=== PATIENT | male | born 1955 | race Hispanic/Latino ===

== ENCOUNTER 2019-12-04 13:09 | Emergency (ER) | payer OTHER ==
--- OUTSIDE RECORDS SUMMARY | 2019-12-04 13:12 | XMS REPORT ---
:1955 Author Organization eClinicalWorks Care Team Providers Name Role Phone Tremaine Asher Provider Role Unavailable Allergies, Adverse Reactions, Alerts Substance Reaction Event Type N.K.D.A. Info Not Available Non Drug Allergy Problems Problem Type Condition Code Onset Dates Condition Status Assessment Body mass index (BMI) 30.0-30.9, Z68.30 Active adult Assessment Other obesity due to excess calories E66.09 Active Problem Hyperlipidemia, unspecified E78.5 Active hyperlipidemia type Assessment Elevated ALT measurement R74.0 Active Problem Allergic rhinitis, seasonal J30.2 Active Assessment Thrombocytopenia D69.6 Active Problem Hyperlipidemia, mixed E78.2 Active Problem Overweight E66.3 Active Problem Erectile dysfunction N52.9 Active Problem Body mass index (BMI) 30.0-30.9, Z68.30 Active adult Problem Asymptomatic hypertensive urgency I16.0 Active Assessment Decreased hearing of left ear H91.92 Active Assessment Allergic rhinitis, seasonal J30.2 Active Problem Other obesity due to excess calories E66.09 Active Assessment Vertigo R42 Active Problem Benign essential HTN I10 Active Problem Decreased hearing of left ear H91.92 Active Problem Anemia, unspecified type D64.9 Active Problem Thrombocytopenia D69.6 Active Assessment Hyperlipidemia, unspecified E78.5 Active hyperlipidemia type Assessment Medicare annual wellness visit, Z00.00 Active subsequent Assessment Anemia, unspecified type D64.9 Active Assessment Prediabetes R73.03 Active Problem Prediabetes R73.03 Active Problem Hypertension, unspecified type I10 Active Assessment Hypertension, unspecified type I10 Active Medications Medication Code Code Instructions Start End Status Dosage System Date Date Flonase [facility] 57046626150 50 MCG/ACT Active 1 spray in Nasally Once a each day nostril Lisinopril/HCTZ [facility] 91892593186 20.5 PO Q March Active one tablet daily 2019 Montelukast [facility] 76186013864 10 MG Orally Active 1 tablet Sodium Once a day Simvastatin [facility] 23839880123 80 MG Orally Active 1 tablet Once a day in the evening ProAir HFA [facility] 03376428808 108 (90 Base) Active 2 puffs as MCG/ACT needed Inhalation every 6 hrs Aspir-81 [facility] 43323993370 81 MG Orally Active 1 tablet Once a day Results No Known Results Summary Purpose eClinicalWorks Submission
--- OUTSIDE RECORDS SUMMARY | 2019-12-04 13:12 | XMS REPORT ---
:1955 Author Organization eClinicalWorks Care Team Providers Name Role Phone Tremaine Asher Provider Role Unavailable Allergies, Adverse Reactions, Alerts Substance Reaction Event Type N.K.D.A. Info Not Available Non Drug Allergy Problems Problem Type Condition Code Onset Dates Condition Status Problem Hyperlipidemia, unspecified E78.5 Active hyperlipidemia type Problem Hyperlipidemia, mixed E78.2 Active Problem Allergic rhinitis, seasonal J30.2 Active Problem Thrombocytopenia D69.6 Active Assessment Thrombocytopenia D69.6 Active Problem Anemia, unspecified type D64.9 Active Problem Asymptomatic hypertensive urgency I16.0 Active Problem Overweight E66.3 Active Problem Erectile dysfunction N52.9 Active Problem Benign essential HTN I10 Active Problem Decreased hearing of left ear H91.92 Active Assessment Decreased hearing of left ear H91.92 Active Assessment Anemia, unspecified type D64.9 Active Assessment Vertigo R42 Active Assessment Allergic rhinitis, seasonal J30.2 Active Assessment Hypertension, unspecified type I10 Active Assessment Prediabetes R73.03 Active Problem Prediabetes R73.03 Active Assessment Hyperlipidemia, unspecified E78.5 Active hyperlipidemia type Problem Hypertension, unspecified type I10 Active Medications Medication Code Code Instructions Start End Status Dosage System Date Date ProAir HFA [facility] [id number] 108 (90 Base) Active 2 puffs as MCG/ACT needed Inhalation every 6 hrs Simvastatin ND 27293003422 80 MG Orally Active 1 tablet Once a day in the evening Montelukast [facility] 24700721378 10 MG Orally Active 1 tablet Sodium Once a day Aspir-81 ND 14053836691 81 MG Orally Active 1 tablet Once a day Flonase [facility] 32381060623 50 MCG/ACT Active 1 spray in Nasally Once a each day nostril Lisinopril/HCTZ [facility] 17791007653 20/12.5 PO Q Sep 28, Active one tablet daily 2019 Results No Known Results Summary Purpose eClinicalWorks Submission
[2019-12-04] MEDS ORDERED: FLUORESCEIN SODIUM 1 MG/WRAP ONE (13:39)
[2019-12-04] MEDS ORDERED: TETRACAINE HCL 0.5% 4ML OPTH ONE (13:39)
--- NOTE | 2019-12-04 13:54 | EDPHYS ---
Physician Documentation [facility] Name: Polo Bae Age: 64 yrs Sex: Male : 1955 Arrival Date: 12/04/2019 Time: 13:11 Bed 23 Private MD: ED Physician Cecil Carbajal HPI: 12/03 13:50 This 64 yrs old Male presents to ER via Ambulatory with complaints of Eye pm1 Pain, Redness of Eye. 13:50 The patient is experiencing pain, redness, to the right eye, caused by debris, Patient pm1 was working underneath his car and something got into his right eye. Onset: The symptoms/episode began/occurred yesterday. Duration: the symptoms are continuous. Aggravated by rubbing. Associated signs and symptoms: Pertinent negatives: fever. Patient does not utilize any form of vision correction. Severity of symptoms: in the emergency department the symptoms are worse increased redness. The patient has not experienced similar symptoms in the past. The patient has not recently seen a physician, His eye doctor is not seeing patient due to pandemic. Historical: - Allergies: 13:17 No Known Allergies; jl7 - PMHx: 13:17 Hyperlipidemia; Hypertension; jl7 - Immunization history:: Adult Immunizations up to date. - Social history:: Smoking status: Patient denies any tobacco usage or history of. ROS: 13:50 Constitutional: Negative for fever, chills, and weight loss. pm1 13:50 Neck: Negative for injury, pain, and swelling, Cardiovascular: Negative for chest pain, palpitations, and edema, Respiratory: Negative for shortness of breath, cough, wheezing, and pleuritic chest pain, Back: Negative for injury and pain, MS/Extremity: Negative for injury and deformity, Skin: Negative for injury, rash, and discoloration. 13:50 Neuro: Negative for headache, weakness, numbness, tingling, and seizure. 13:50 Eyes: Positive for foreign body sensation, pain, redness, Negative for blurry vision, discharge. 13:50 All other systems are negative. Exam: 13:50 Constitutional: This is a well developed, well nourished patient who is awake, alert, pm1 and in no acute distress. 13:50 Chest/axilla: Normal chest wall appearance and motion. Nontender with no deformity. No lesions are appreciated. Cardiovascular: Regular rate and rhythm with a normal S1 and S2. No gallops, murmurs, or rubs. Normal PMI, no JVD. No pulse deficits. Respiratory: Lungs have equal breath sounds bilaterally, clear to auscultation and percussion. No rales, rhonchi or wheezes noted. No increased work of breathing, no retractions or nasal flaring. Skin: Warm, dry with normal turgor. Normal color with no rashes, no lesions, and no evidence of cellulitis. MS/ Extremity: Pulses equal, no cyanosis. Neurovascular intact. Full, normal range of motion. 13:50 Eyes: Periorbital structures: appear normal, Pupils: no acute changes, Extraocular movements: intact throughout, Conjunctiva: chemosis, is not appreciated, injected, in the right eye, subconjunctival hemorrhage(s), seen in the right eye, at 6 o'clock, Corneas: abrasion, that is small, on the right, at 3 and 6 o'clock, a fluorescein strip employed to appreciate the findings, Anterior chamber: normal, no hyphema, Lids and lashes: appear normal. 13:50 Neuro: Exam negative for acute changes, Orientation: is normal, Motor: is normal, moves all fours. Vital Signs: 13:14 BP 177 / 84; Pulse 52; Resp 16; Temp 97.6; Pulse Ox 99% ; Weight 86.18 kg; Pain 6/10; jl7 Visual Acuity: 13:30 Left Eye Visual acuity 20/25, ; Right Eye Visual acuity 20/20, ; Both Eyes Visual vc acuity 20/15; Without Lenses; MDM: 13:19 Patient medically screened. pm1 13:41 Data reviewed: vital signs. Data interpreted: Pulse oximetry: on room air is 99 %. pm1 Interpretation: normal. 13:41 ED course: Reports tetanus less than 5 years. pm1 13:50 Counseling: I had a detailed discussion with the patient and/or guardian regarding: the pm1 historical points, exam findings, and any diagnostic results supporting the discharge/admit diagnosis, the need for outpatient follow up, to return to the emergency department if symptoms worsen or persist or if there are any questions or concerns that arise at home. 12/03 13:26 Order name: Visual Acuity; Complete Time: 13:30 pm1 12/03 13:26 Order name: Eye Tray; Complete Time: 13:36 pm1 12/03 13:26 Order name: Fluoresene Opth strip; Complete Time: 13:36 pm1 Administered Medications: 13:50 Drug: Tetracaine Drops 0.5 % 1 drops Route: Ophthalmic; Site: right eye; vc 14:07 Follow up: Response: No adverse reaction vc 13:50 Drug: Tobramycin Ointment (0.3 %) 0.5 inches Route: Ophthalmic; Site: right eye; vc 14:07 Follow up: Response: No adverse reaction vc Disposition: 17:17 Co-signature as Attending Physician, Cecil Carbajal MD I agree with the assessment and lilliana plan of care. Disposition: 12/04/19 13:53 Discharged to Home. Impression: Injury of conjunctiva and corneal abrasion without foreign body, right eye, Conjunctival hemorrhage, right eye. - Condition is Stable. - Discharge Instructions: Corneal Abrasion, Subconjunctival Hemorrhage. - Prescriptions for Erythromycin 5 mg/gram (0.5 %) Ophthalmic Ointment - apply 1 ribbon by OPHTHALMIC route every 8 hours for 7 days; 1 tube. - Medication Reconciliation Form, Thank You Letter, Antibiotic Education, Prescription Opioid Use form. - Follow up: Emergency Department; When: As needed; Reason: Worsening of condition. Follow up: Private Physician; When: 2 - 3 days; Reason: Recheck today's complaints, Continuance of care, Re-evaluation by your physician. - Problem is new. - Symptoms have improved. Signatures: Cecil Carbajal MD MD cha Marinas, Patrick, NP BUS DRIVER pm1 Ariana Porter RN RN jl7 Kathy Kulkarni RN RN vc Corrections: (The following items were deleted from the chart) 14:09 13:53 12/04/2019 13:53 Discharged to Home. Impression: Injury of conjunctiva and vc corneal abrasion without foreign body, right eyeConjunctival hemorrhage, right eye. Condition is Stable. Forms are Medication Reconciliation Form, Thank You Letter, Antibiotic Education, Prescription Opioid Use. Follow up: Emergency Department; When: As needed; Reason: Worsening of condition. Follow up: Private Physician; When: 2 - 3 days; Reason: Recheck today's complaints, Continuance of care, Re-evaluation by your physician. Problem is new. Symptoms have improved. pm1
--- NOTE | 2019-12-04 13:54 | ER ---
Nurse's Notes [facility] Name: Polo Bae Age: 64 yrs Sex: Male : 1955 Arrival Date: 12/04/2019 Time: 13:11 Bed 23 Private MD: Diagnosis: Conjunctival hemorrhage, right eye;Injury of conjunctiva and corneal abrasion without foreign body, right eye Presentation: 12/03 13:14 Chief complaint: Patient states: Pain and redness to right eye since yesterday. jl7 Coronavirus screen: Patient denies fever greater than 100.4F, cough, shortness of breath, or difficulty breathing. Proceed with normal triage process. Ebola Screen: No symptoms or risks identified at this time. Mechanism of Injury: No Mechanism of Injury. The patient denies any loss of vision. Initial Sepsis Screen: Does the patient meet any 2 criteria? No. Patient's initial sepsis screen is negative. Does the patient have a suspected source of infection? No. Patient's initial sepsis screen is negative. Risk Assessment: Do you want to hurt yourself or someone else? Patient reports no desire to harm self or others. Onset of symptoms was December 03, 2019. 13:14 Method Of Arrival: Ambulatory [facility] 13:14 Acuity: SILVA 4 jl7 Triage Assessment: 13:17 General: Appears in no apparent distress. uncomfortable, Behavior is calm, cooperative, jl7 appropriate for age. Pain: Complains of pain in right eye Pain currently is 6 out of 10 on a pain scale. EENT: Sclera/Cornea are reddened in right eye. Historical: - Allergies: 13:17 No Known Allergies; jl7 - PMHx: 13:17 Hyperlipidemia; Hypertension; jl7 - Immunization history:: Adult Immunizations up to date. - Social history:: Smoking status: Patient denies any tobacco usage or history of. Screenin:36 Abuse screen: Denies threats or abuse. Nutritional screening: No deficits noted. vc Tuberculosis screening: No symptoms or risk factors identified. Fall Risk None identified. Assessment: 13:38 General: Appears in no apparent distress. comfortable, Behavior is calm, cooperative, vc appropriate for age. Pain: Complains of pain in right eye Pain does not radiate. Neuro: Level of Consciousness is awake, alert, obeys commands, Oriented to person, place, time, situation. Cardiovascular: Patient's skin is warm and dry. Respiratory: Respiratory effort is even, unlabored, Respiratory pattern is regular, symmetrical. GI: No signs and/or symptoms were reported involving the gastrointestinal system. : No signs and/or symptoms were reported regarding the genitourinary system. EENT: Eyes red. Sclera/Cornea are reddened in right eye. Derm: Skin temperature is warm. Musculoskeletal: Circulation, motion, and sensation intact. Range of motion: intact in all extremities. Vital Signs: 13:14 BP 177 / 84; Pulse 52; Resp 16; Temp 97.6; Pulse Ox 99% ; Weight 86.18 kg; Pain 6/10; jl7 Visual Acuity: 13:30 Left Eye Visual acuity 20/25, ; Right Eye Visual acuity 20/20, ; Both Eyes Visual vc acuity 20/15; Without Lenses; ED Course: 13:11 Patient arrived in ED. ag5 13:12 Tico Christianson NP is PHCP. pm1 13:12 Cecil Carbajal MD is Attending Physician. pm1 13:17 Triage completed. jl7 13:17 Arm band placed on right wrist. jl7 13:27 Kathy Kulkarni, RN is Primary Nurse. vc 13:37 Patient has correct armband on for positive identification. Bed in low position. vc 13:50 Assist provider with eye exam of right eye. using fluorescein stain, Performed by vc Tico Christianson NP Patient tolerated well. 13:58 Patient did not have IV access during this emergency room visit. vc Administered Medications: 13:50 Drug: Tetracaine Drops 0.5 % 1 drops Route: Ophthalmic; Site: right eye; vc 14:07 Follow up: Response: No adverse reaction vc 13:50 Drug: Tobramycin Ointment (0.3 %) 0.5 inches Route: Ophthalmic; Site: right eye; vc 14:07 Follow up: Response: No adverse reaction vc Outcome: 13:53 Discharge ordered by . pm1 14:09 Discharged to home ambulatory. vc 14:09 Condition: good 14:09 Discharge instructions given to patient, Instructed on discharge instructions, follow up and referral plans. medication usage, Demonstrated understanding of instructions, follow-up care, medications, Prescriptions given X 1. 14:09 Patient left the ED. vc Signatures: Tico Christianson NP DIRECTOR OF PUBLIC RELATIONS pm1 Ariana Porter, RN RN jl7 Delores Ordoñez ag5 Kathy Kulkarni, ELVIS RN vc
[2019-12-04] MEDS ORDERED: TOBRAMYCIN SULF 0.3% OPTH OINT ONE (14:08)
[2019-12-04 14:21] VITALS: BP 177/84; TEMP 97.6; O2SAT 99
== END 2019-12-04 14:09 | disposition home or self-care (01) ==
LOC: ER 13:09
DX: S05.01XA Injury of conjunctiva and corneal abrasion without foreign body, right eye, initial encounter (principal); H11.31 Conjunctival hemorrhage, right eye; I10 Essential (primary) hypertension
CPT/HCPCS: 99283

== ENCOUNTER 2024-04-30 09:49 | Emergency (ER) | payer OTHER ==
--- OUTSIDE RECORDS SUMMARY | 2024-04-30 09:54 | XMS REPORT | Continuity of Care Document ---
Author Name Unknown Address [address] [facility] [address] [place] [address] [facility] Address [address] [facility] [address] [place] [address] Care Team Providers Care Machine Turner Name Role Phone Asher Penaloza Attending Clinician Unavailable Mirella Brand Attending Clinician Payers Payer Name Policy Type Policy Number Effective Date Expirati on Date Source [employer] Medicare Replace C1 [id number] [facility] [employer] Medicare Replace C1 [id number] [facility] Problems Condition Name Condition Details Condition Category Status Onset Date Resolution Date Last Treatment Date Treating Clinician Comments Source No known active problems No known active problems Disease [facility] [id number] Arthritis of left knee Problem [facility] [id number] Prediabete s Problem [facility] [id number] Hyperlipid emia, unspecifie d hyperlipid emia type Problem [facility] [id number] Hypertensi on, unspecifie d type Problem [facility] Erectile dysfunctio n Erectile dysfunctio n Problem [facility] Overweight Overweight Problem [facility] [id number] Decreased hearing of left ear Problem [facility] [id number] Body mass index (BMI) 30.0-30.9, adult Problem [facility] Mixed hyperlipid emia Hyperlipid emia, mixed Problem [facility] [id number] Other obesity due to excess calories Problem [facility] Seasonal allergic rhinitis Allergic rhinitis, seasonal Problem [facility] [id number] Type 2 diabetes mellitus with hyperglyce lesly, without long-term current use of insulin Problem [facility] [id number] Benign essential HTN Problem [facility] [id number] Thrombocyt openia Problem [facility] [id number] Anemia, unspecifie d type Problem [facility] [id number] Asymptomat ic hypertensi ve urgency Problem [facility] Allergies, Adverse Reactions, Alerts Allergy Name Allergy Type Status Severity Reaction(s) Onset Date Inactive Date Treating Clinician Comments Source NO KNOWN ALLERGIE S Drug Class Active [facility] Social History Social Habit Start Date Stop Date Quantity Comments Source Exposure to SARS-CoV-2 (event) Not sure [facility] History of Tobacco Use [facility] Sex Assigned At [facility] Smoking Status Start Date Stop Date Source Never Smoker [facility] Unknown if ever smoked [facility] Medications Ordered Medication Name Filled Medication Name Start Date Stop Date Current Medication? Ordering Clinician Indication Dosage Frequency Signature (SIG) Comments Components Source Bupivicaine [place] Bupivicaine [place] 01-13 00:00: 00 No 2.5mg [facility] Kenalog (Triamcinol one) Kenalog (Triamcinol one) 01-13 00:00: 00 No 40mg [facility] ondansetron 4 mg disintegrat ing tablet 03-30 00:00: 00 Yes 4mg Take 1 tablet by mouth every 4 (four) hours as needed for Nausea and Vomiting (N/V). [facility] famotidine 20 mg tablet 03-30 00:00: 00 Yes 20mg Take 1 tablet by mouth 2 (two) times daily. [facility] Simvastatin 80 MG Simvastatin 80 MG No 1{table t_in_th e_eveni ng} QD Simvastati n 80 MG Montelukast Sodium 10 MG Montelukast Sodium 10 MG No 1{table t} QD Montelukas t Sodium 10 MG Aspir-81 81 MG Aspir-81 81 MG No 1{table t} QD Aspir-81 81 MG Lisinopril- hydroCHLORO thiazide 20-12.5 MG Lisinopril- hydroCHLORO thiazide 20-12.5 MG No Lisinopril -hydroCHLO ROthiazide 20-12.5 MG Flonase 50 MCG/ACT Flonase 50 MCG/ACT No 1{spray _in_eac h_nostr il} QD Flonase 50 MCG/ACT Immunizations Ordered Immunization Name Filled Immunization Name Date Status Comments Source Shingrix Shingrix 2022-10-02 08:42:00 Completed [facility] Shingrix Shingrix 2022-10-02 08:42:00 Completed [facility] Moderna COVID-19 Vaccine Moderna COVID-19 Vaccine 2020-12-21 09:55:00 Completed [facility] Moderna COVID-19 Vaccine Moderna COVID-19 Vaccine 2020-12-21 09:55:00 Completed [facility] Moderna COVID-19 Vaccine Moderna COVID-19 Vaccine 2020-12-21 09:55:00 Completed [facility] Moderna COVID-19 Vaccine Moderna COVID-19 Vaccine 2020-12-21 09:55:00 Completed [facility] Moderna COVID-19 Vaccine Moderna COVID-19 Vaccine 2020-12-21 09:55:00 Completed [facility] Moderna COVID-19 Vaccine Moderna COVID-19 Vaccine 2020-12-21 09:55:00 Completed [facility] Moderna COVID-19 Vaccine Moderna COVID-19 Vaccine 2020-12-21 09:55:00 Completed [facility] Moderna COVID-19 Vaccine Moderna COVID-19 Vaccine 2020-12-21 09:55:00 Completed [facility] Moderna COVID-19 Vaccine Moderna COVID-19 Vaccine 2020-12-21 09:55:00 Completed [facility] Moderna COVID-19 Vaccine Moderna COVID-19 Vaccine 2020-12-21 09:55:00 Completed [facility] Moderna COVID-19 Vaccine Moderna COVID-19 Vaccine 2020-12-21 09:55:00 Completed [facility] Moderna COVID-19 Vaccine Moderna COVID-19 Vaccine 2020-11-09 09:55:00 Completed [facility] Moderna COVID-19 Vaccine Moderna COVID-19 Vaccine 2020-11-09 09:55:00 Completed [facility] Moderna COVID-19 Vaccine Moderna COVID-19 Vaccine 2020-11-09 09:55:00 Completed [facility] Moderna COVID-19 Vaccine Moderna COVID-19 Vaccine 2020-11-09 09:55:00 Completed [facility] Moderna COVID-19 Vaccine Moderna COVID-19 Vaccine 2020-11-09 09:55:00 Completed [facility] Moderna COVID-19 Vaccine Moderna COVID-19 Vaccine 2020-11-09 09:55:00 Completed [facility] Moderna COVID-19 Vaccine Moderna COVID-19 Vaccine 2020-11-09 09:55:00 Completed [facility] Moderna COVID-19 Vaccine Moderna COVID-19 Vaccine 2020-11-09 09:55:00 Completed [facility] Moderna COVID-19 Vaccine Moderna COVID-19 Vaccine 2020-11-09 09:55:00 Completed [facility] Moderna COVID-19 Vaccine Moderna COVID-19 Vaccine 2020-11-09 09:55:00 Completed [facility] Moderna COVID-19 Vaccine Moderna COVID-19 Vaccine 2020-11-09 09:55:00 Completed [facility] FluAD FluAD 2020-05-31 08:22:00 Completed [facility] FluAD FluAD 2020-05-31 08:22:00 Completed [facility] FluAD FluAD 2020-05-31 08:22:00 Completed [facility] FluAD FluAD 2020-05-31 08:22:00 Completed [facility] FluAD FluAD 2020-05-31 08:22:00 Completed [facility] FluAD FluAD 2020-05-31 08:22:00 Completed [facility] FluAD FluAD 2020-05-31 08:22:00 Completed [facility] FluAD FluAD 2020-05-31 08:22:00 Completed [facility] FluAD FluAD 2020-05-31 08:22:00 Completed [facility] FluAD FluAD 2020-05-31 08:22:00 Completed [facility] FluAD FluAD 2020-05-31 08:22:00 Completed [facility] Td Td 2019-01-03 17:22:00 Completed [facility] Td Td 2019-01-03 17:22:00 Completed [facility] Td Td 2019-01-03 17:22:00 Completed [facility] Td Td 2019-01-03 17:22:00 Completed [facility] Td Td 2019-01-03 17:22:00 Completed [facility] Td Td 2019-01-03 17:22:00 Completed [facility] Td Td 2019-01-03 17:22:00 Completed [facility] Td Td 2019-01-03 17:22:00 Completed [facility] Td Td 2019-01-03 17:22:00 Completed [facility] Td Td 2019-01-03 17:22:00 Completed [facility] Td Td 2019-01-03 17:22:00 Completed [facility] Td Td 2019-01-03 00:00:00 Completed [facility] Prevnar 13 -Pneumonia Vaccine Prevnar 13 -Pneumonia Vaccine 2018-08-04 10:17:00 Completed [facility] Prevnar 13 -Pneumonia Vaccine Prevnar 13 -Pneumonia Vaccine 2018-08-04 10:17:00 Completed [facility] Prevnar 13 -Pneumonia Vaccine Prevnar 13 -Pneumonia Vaccine 2018-08-04 10:17:00 Completed [facility] Prevnar 13 -Pneumonia Vaccine Prevnar 13 -Pneumonia Vaccine 2018-08-04 10:17:00 Completed [facility] Prevnar 13 -Pneumonia Vaccine Prevnar 13 -Pneumonia Vaccine 2018-08-04 10:17:00 Completed [facility] Prevnar 13 -Pneumonia Vaccine Prevnar 13 -Pneumonia Vaccine 2018-08-04 10:17:00 Completed [facility] Prevnar 13 -Pneumonia Vaccine Prevnar 13 -Pneumonia Vaccine 2018-08-04 10:17:00 Completed [facility] Prevnar 13 -Pneumonia Vaccine Prevnar 13 -Pneumonia Vaccine 2018-08-04 10:17:00 Completed [facility] Prevnar 13 -Pneumonia Vaccine Prevnar 13 -Pneumonia Vaccine 2018-08-04 10:17:00 Completed [facility] Prevnar 13 -Pneumonia Vaccine Prevnar 13 -Pneumonia Vaccine 2018-08-04 10:17:00 Completed [facility] Prevnar 13 -Pneumonia Vaccine Prevnar 13 -Pneumonia Vaccine 2018-08-04 10:17:00 Completed [facility] Moderna COVID-19 Vaccine Moderna COVID-19 Vaccine Unknown Completed [facility] Moderna COVID-19 Vaccine Moderna COVID-19 Vaccine Unknown Completed [facility] FluAD FluAD Unknown Completed [facility] rit [facility] Shingrix Shingrix Unknown Completed [facility] rit [facility] Shingrix Shingrix Unknown Completed [facility] Td Td Unknown Completed [facility] Prevnar 13 -Pneumonia Vaccine Prevnar 13 -Pneumonia Vaccine Unknown Completed [facility] Moderna COVID-19 Vaccine Moderna COVID-19 Vaccine Unknown Completed [facility] Moderna COVID-19 Vaccine Moderna COVID-19 Vaccine Unknown Completed [facility] FluAD FluAD Unknown Completed [facility] Shingrix Shingrix Unknown Completed [facility] Shingrix Shingrix Unknown Completed [facility] Td Td Unknown Completed [facility] Prevnar 13 -Pneumonia Vaccine Prevnar 13 -Pneumonia Vaccine Unknown Completed [facility] Moderna COVID-19 Vaccine Moderna COVID-19 Vaccine Unknown Completed [facility] Moderna COVID-19 Vaccine Moderna COVID-19 Vaccine Unknown Completed [facility] FluAD FluAD Unknown Completed [facility] Shingrix Shingrix Unknown Completed [facility] Shingrix Shingrix Unknown Completed [facility] Td Td Unknown Completed [facility] Prevnar 13 -Pneumonia Vaccine Prevnar 13 -Pneumonia Vaccine Unknown Completed [facility] Moderna COVID-19 Vaccine Moderna COVID-19 Vaccine Unknown Completed [facility] Moderna COVID-19 Vaccine Moderna COVID-19 Vaccine Unknown Completed [facility] FluAD FluAD Unknown Completed [facility] Shingrix Shingrix Unknown Completed [facility] Sh[facility] Shingrix Unknown Completed [facility] Td Td Unknown Completed [facility] Prevnar 13 -Pneumonia Vaccine Prevnar 13 -Pneumonia Vaccine Unknown Completed [facility] Moderna COVID-19 Vaccine Moderna COVID-19 Vaccine Unknown Completed [facility] Moderna COVID-19 Vaccine Moderna COVID-19 Vaccine Unknown Completed [facility] FluAD FluAD Unknown Completed [facility] Shingrix Shingrix Unknown Completed [facility] Shingrix Shingrix Unknown Completed [facility] Td Td Unknown Completed [facility] Prevnar 13 -Pneumonia Vaccine Prevnar 13 -Pneumonia Vaccine Unknown Completed [facility] Moderna COVID-19 Vaccine Moderna COVID-19 Vaccine Unknown Completed [facility] Moderna COVID-19 Vaccine Moderna COVID-19 Vaccine Unknown Completed [facility] FluAD FluAD Unknown Completed [facility] Shingrix Shingrix Unknown Completed [facility] Shingrix Shingrix Unknown Completed [facility] Td Td Unknown Completed [facility] Prevnar 13 -Pneumonia Vaccine Prevnar 13 -Pneumonia Vaccine Unknown Completed [facility] Fluzone High-Dose (IIV4-HD) - SDS - 0.7mL Fluzone High-Dose (IIV4-HD) - SDS - 0.7mL Unknown Completed [facility] Prevnar 20 (PCV20) Prevnar 20 (PCV20) Unknown Completed [facility] Moderna COVID-19 Vaccine Moderna COVID-19 Vaccine Unknown Completed [facility] Moderna COVID-19 Vaccine Moderna COVID-19 Vaccine Unknown Completed [facility] FluAD FluAD Unknown Completed [facility] Shingrix Shingrix Unknown Completed [facility] Shingrix Shingrix Unknown Completed [facility] Td Td Unknown Completed [facility] Prevnar 13 -Pneumonia Vaccine Prevnar 13 -Pneumonia Vaccine Unknown Completed [facility] Vital Signs Vital Name Observation Time Observation Value Comments S ource height 2024-04-28 08:20:00 68 [in_i] [facility] weight 2024-04-28 08:20:00 202.6 [lb_av] [facility] temperature 2024-04-28 08:20:00 97.6 [degF] Com [facility] bmi 2024-04-28 08:20:00 30.8 kg/m2 [facility] oximetry 2024-04-28 08:20:00 98 % [facility] blood pressure systolic 2024-04-28 08:20:00 128 mm[Hg] [facility] blood pressure diastolic 2024-04-28 08:20:00 64 mm[Hg] [facility] height 2024-04-28 08:20:00 68 [in_i] Commo n [facility] weight 2024-04-28 08:20:00 202.6 [lb_av] [facility] temperature 2024-04-28 08:20:00 97.6 [degF] Com [facility] bmi 2024-04-28 08:20:00 30.8 kg/m2 [facility] oximetry 2024-04-28 08:20:00 98 % [facility] blood pressure systolic 2024-04-28 08:20:00 128 mm[Hg] [facility] blood pressure diastolic 2024-04-28 08:20:00 64 mm[Hg] [facility] height 2023-12-24 08:20:00 68 [in_i] Com[facility] weight 2023-12-24 08:20:00 205.0 [lb_av] [facility] temperature 2023-12-24 08:20:00 97.5 [degF] Com [facility] bmi 2023-12-24 08:20:00 31.17 kg/m2 Comm on [facility] oximetry 2023-12-24 08:20:00 97 % [facility] respiratory rate 2023-12-24 08:20:00 18 /min [facility] blood pressure systolic 2023-12-24 08:20:00 128 mm[Hg] [facility] blood pressure diastolic 2023-12-24 08:20:00 73 mm[Hg] [facility] height 2023-09-17 09:40:00 68 [in_i] Com[facility] weight 2023-09-17 09:40:00 202.2 [lb_av] [facility] temperature 2023-09-17 09:40:00 98.2 [degF] Com [facility] bmi 2023-09-17 09:40:00 30.74 kg/m2 Comm on [facility] oximetry 2023-09-17 09:40:00 97 % [facility] blood pressure systolic 2023-09-17 09:40:00 132 mm[Hg] [facility] blood pressure diastolic 2023-09-17 09:40:00 76 mm[Hg] Common [facility] height 2023-03-26 09:30:00 68 [in_i] Commo n [facility] weight 2023-03-26 09:30:00 196.4 [lb_av] [facility] temperature 2023-03-26 09:30:00 97.0 [degF] Com [facility] bmi 2023-03-26 09:30:00 29.86 kg/m2 Comm on [facility] oximetry 2023-03-26 09:30:00 99 % [facility] respiratory rate 2023-03-26 09:30:00 18 /min [facility] blood pressure systolic 2023-03-26 09:30:00 119 mm[Hg] [facility] blood pressure diastolic 2023-03-26 09:30:00 59 mm[Hg] [facility] height 2023-03-26 09:40:00 68 [in_i] Commo n [facility] weight 2023-03-26 09:40:00 196.4 [lb_av] [facility] temperature 2023-03-26 09:40:00 97.0 [degF] Com mon [facility] bmi 2023-03-26 09:40:00 29.86 kg/m2 Comm on [facility] oximetry 2023-03-26 09:40:00 99 % [facility] respiratory rate 2023-03-26 09:40:00 18 /min [facility] blood pressure systolic 2023-03-26 09:40:00 119 mm[Hg] [facility] blood pressure diastolic 2023-03-26 09:40:00 59 mm[Hg] [facility] height 2022-10-02 08:20:00 68 [in_i] Commo n [facility] weight 2022-10-02 08:20:00 201.3 [lb_av] [facility] temperature 2022-10-02 08:20:00 96.6 [degF] Com mon [facility] bmi 2022-10-02 08:20:00 30.6 kg/m2 Com[facility] oximetry 2022-10-02 08:20:00 99 % [facility] respiratory rate 2022-10-02 08:20:00 18 /min [facility] blood pressure systolic 2022-10-02 08:20:00 135 mm[Hg] [facility] blood pressure diastolic 2022-10-02 08:20:00 72 mm[Hg] [facility] height 2022-03-16 10:10:00 68 [in_i] Commo [facility] weight 2022-03-16 10:10:00 196.3 [lb_av] [facility] temperature 2022-03-16 10:10:00 97.6 [degF] Com [facility] bmi 2022-03-16 10:10:00 29.84 kg/m2 Comm on [facility] oximetry 2022-03-16 10:10:00 97 % [facility] respiratory rate 2022-03-16 10:10:00 18 /min [facility] blood pressure systolic 2022-03-16 10:10:00 137 mm[Hg] [facility] blood pressure diastolic 2022-03-16 10:10:00 88 mm[Hg] Common [facility] height 2022-03-16 10:00:00 68 [in_i] Commo n [facility] weight 2022-03-16 10:00:00 196.3 [lb_av] [facility] temperature 2022-03-16 10:00:00 97.6 [degF] Com [facility] bmi 2022-03-16 10:00:00 29.84 kg/m2 Comm on [facility] oximetry 2022-03-16 10:00:00 97 % Com[facility] respiratory rate 2022-03-16 10:00:00 18 /min [facility] blood pressure systolic 2022-03-16 10:00:00 137 mm[Hg] [facility] blood pressure diastolic 2022-03-16 10:00:00 88 mm[Hg] Common [facility] height 2022-01-13 14:00:00 68 [in_i] Commo n [facility] weight 2022-01-13 14:00:00 204 [lb_av] Comm on [facility] bmi 2022-01-13 14:00:00 31.01 kg/m2 Comm on [facility] blood pressure systolic 2022-01-13 14:00:00 134 mm[Hg] [facility] blood pressure diastolic 2022-01-13 14:00:00 82 mm[Hg] [facility] height 2021-09-19 08:30:00 68 [in_i] Commo n [facility] weight 2021-09-19 08:30:00 195 [lb_av] Comm on [facility] temperature 2021-09-19 08:30:00 98 [degF] Comm on [facility] bmi 2021-09-19 08:30:00 29.65 kg/m2 Comm on [facility] blood pressure systolic 2021-09-19 08:30:00 130 mm[Hg] [facility] blood pressure diastolic 2021-09-19 08:30:00 70 mm[Hg] [facility] height 2021-05-16 08:30:00 68 [in_i] Commo n [facility] weight 2021-05-16 08:30:00 197.8 [lb_av] [facility] temperature 2021-05-16 08:30:00 97.4 [degF] Com mon [facility] bmi 2021-05-16 08:30:00 30.07 kg/m2 Comm on [facility] oximetry 2021-05-16 08:30:00 97 % [facility] respiratory rate 2021-05-16 08:30:00 16 /min [facility] blood pressure systolic 2021-05-16 08:30:00 133 mm[Hg] [facility] blood pressure diastolic 2021-05-16 08:30:00 75 mm[Hg] [facility] Body weight 2021-01-02 19:01:00 86.183 kg [facility] BMI 2021-01-02 19:01:00 28.89 kg/m2 [facility] Systolic blood pressure 2021-01-02 18:49:00 146 mm[Hg] [facility] Diastolic blood pressure 2021-01-02 18:49:00 73 mm[Hg] [facility] Heart rate 2021-01-02 18:49:00 88 /min [facility] Body temperature 2021-01-02 18:49:00 36.72 Yvette [facility] Respiratory rate 2021-01-02 18:49:00 16 /min [facility] Oxygen saturation in Arterial blood by Pulse oximetry 2021-01-02 18:49:00 97 /min [facility] Procedures Procedure Date / Time Performed Performing Clinicia n Source NOTICE OF PRIVACY PRACTICES 2021-01-02 18:43:06 Doctor Unassigned, [place] [facility] Encounters Start Date/Time End Date/Time Encounter Type Admission Type Attending Clinicians Care Facility Care Department Encounter ID Source 2024-04-27 16:50:00 Outpatient Penaloza, Asher [facility] [id number] [facility] 2022-08-03 11:02:00 Outpatient Penaloza, Asher [facility] [id number] [facility] 2022-03-17 08:00:00 Outpatient Penaloza, Asher [facility] [id number] [facility] [facility] 2022-03-16 10:34:00 Outpatient Penaloza, Asher STLC STLC [id number] [facility] 2021-12-29 16:24:02 Outpatient Penaloza, Asher STLC STLC [id number] [facility] 2021-10-01 14:12:25 Outpatient Penaloza, Asher STLC STLC [id number] [facility] 2021-10-01 13:48:24 Outpatient Penaloza, Asher STLMLC STLMLC [id number] [facility] 2021-10-01 12:38:15 Outpatient Penaloza, Asher STLMLC STLMLC [id number] [facility] 2021-10-01 12:36:24 Outpatient Penaloza, Asher STLMLC STLMLC [id number] [facility] 2021-10-01 12:29:58 Outpatient Penaloza, Asher STLMLC STLMLC [id number] [facility] 2021-10-01 12:23:13 Outpatient Penaloza, Asher STLMLC STLMLC [id number] [facility] 2021-10-01 12:20:45 Outpatient Penaloza, Asher STLC STLMLC [id number] [facility] 2021-10-01 11:17:54 Outpatient Penaloza, Asher STLMLC STLMLC [id number] [facility] 2021-10-01 11:02:37 Outpatient Penaloza, Asher STLC STLMLC [id number] [facility] 2021-10-01 11:01:20 Outpatient Penaloza, Asher STLC STLC [id number] [facility] 2024-04-28 00:00:00 2024-04-28 00:00:00 OFFICE VISIT ESTAB PT LEVEL 4 STLMLC STLMLC [id number] [facility] 2024-04-28 00:00:00 2024-04-28 00:00:00 (TEL) STLMLC STLMLC [id number] [facility] 2024-04-28 00:00:00 2024-04-28 00:00:00 SUB ANNUAL [facility] WELLNESS VISIT STLMLC STLMLC [id number] [facility] 2023-12-24 00:00:00 2023-12-24 00:00:00 OFFICE VISIT ESTAB PT LEVEL 4 STLMLC STLMLC [id number] [facility] 2023-09-17 00:00:00 2023-09-17 00:00:00 OFFICE VISIT ESTAB PT LEVEL 4 STLMLC STLMLC [id number] [facility] 2023-03-26 00:00:00 2023-03-26 00:00:00 OFFICE VISIT ESTAB PT LEVEL 4 STLMLC STLMLC [id number] [facility] 2023-03-26 00:00:00 2023-03-26 00:00:00 SUB ANNUAL [facility] WELLNESS VISIT STLMLC STLMLC [id number] [facility] 2022-12-17 00:00:00 2022-12-17 00:00:00 (TEL) STLMLC STLMLC [id number] [facility] 2022-12-03 00:00:00 2022-12-03 00:00:00 (TEL) STLMLC STLMLC [id number] [facility] 2022-10-02 00:00:00 2022-10-02 00:00:00 OFFICE VISIT ESTAB PT LEVEL 4 STLMLC STLMLC [id number] [facility] 2022-08-03 00:00:00 2022-08-03 00:00:00 (TEL) STLMLC STLMLC [id number] [facility] 2022-03-16 00:00:00 2022-03-16 00:00:00 OFFICE VISIT ESTAB PT LEVEL 4 STLMLC STLMLC [id number] [facility] 2022-03-16 00:00:00 2022-03-16 00:00:00 SUB ANNUAL MCR WELLNESS VISIT STLMLC STLMLC [id number] [facility] 2022-01-30 00:00:00 2022-01-30 00:00:00 (TEL) STLMLC STLMLC [id number] [facility] 2022-01-13 00:00:00 2022-01-13 00:00:00 OFFICE VISIT NEW PT LEVEL 4 STLMLC STLMLC [id number] [facility] 2021-12-29 00:00:00 2021-12-29 00:00:00 (TEL) STLMLC STLMLC [id number] [facility] 2021-11-27 00:00:00 2021-11-27 00:00:00 (TEL) STLMLC STLMLC [id number] [facility] 2021-09-19 00:00:00 2021-09-19 00:00:00 OFFICE VISIT EST PT LEVEL 3 STLMLC STLMLC [id number] [facility] 2021-07-18 00:00:00 2021-07-18 00:00:00 (TEL) STLMLC STLMLC [id number] [facility] 2021-05-16 00:00:00 2021-05-16 00:00:00 OFFICE VISIT ESTAB PT LEVEL 4 STLMLC STLMLC [id number] [facility] 2021-01-17 00:00:00 2021-01-17 00:00:00 Outpatient STLMLC STLMLC [id number] [facility] 2021-01-02 13:46:00 2021-01-02 14:50:00 Emergency Mirella Lawton [facility] [id number] [facility] 2021-01-02 13:43:00 2021-01-02 13:43:00 Emergency X [facility] ERT [id number] [facility] 2020-12-04 00:00:00 2020-12-04 00:00:00 Outpatient STLMLC STLMLC [id number] [facility] 2020-11-15 00:00:00 2020-11-15 00:00:00 Outpatient STLMLC STLMLC [id number] [facility] 2020-11-13 00:00:00 2020-11-13 00:00:00 Outpatient STLMLC STLMLC [id number] [facility] 2020-11-12 00:00:00 2020-11-12 00:00:00 Outpatient STLMLC STLMLC [id number] [facility] 2020-09-25 00:00:00 2020-09-25 00:00:00 Outpatient STLMLC STLMLC [id number] [facility] 2020-09-20 00:00:00 2020-09-20 00:00:00 Outpatient STLMLC STLMLC [id number] [facility] 2020-09-20 00:00:00 2020-09-20 00:00:00 Outpatient STLMLC STLMLC [id number] [facility] 2020-09-12 00:00:00 2020-09-12 00:00:00 Outpatient STLMLC STLMLC [id number] [facility] 2020-09-10 00:00:00 2020-09-10 00:00:00 Outpatient STLMLC STLMLC [id number] [facility] 2020-09-10 00:00:00 2020-09-10 00:00:00 Outpatient STLMLC STLMLC [id number] [facility] 2020-05-31 00:00:00 2020-05-31 00:00:00 Outpatient STLMLC STLMLC [id number] [facility] 2020-02-02 13:15:00 2020-02-02 13:15:[address] [facility] [id number] [facility] 2020-02-01 08:00:00 2020-02-01 08:00:[address] [facility] [id number] [facility] 2019-09-28 08:45:00 2019-09-28 08:45:[address] [facility] [id number] [facility] 2019-06-30 08:00:00 2019-06-30 08:00:[address] [facility] [id number] [facility] 2019-04-03 08:00:00 2019-04-03 08:00:[address] [facility] [id number] [facility] 2019-03-30 09:15:00 2019-03-30 09:15:[address] [facility] [id number] [facility] 2019-03-03 08:30:00 2019-03-03 08:30:[address] [facility] [id number] [facility] 2019-01-03 17:00:00 2019-01-03 17:00:00 [facility] [id number] [facility] 2018-12-02 09:45:00 2018-12-02 09:45:[address] [facility] [id number] [facility] 2018-11-04 08:30:00 2018-11-04 08:30:00 [facility] [id number] [facility] 2018-05-06 08:00:00 2018-05-06 08:00:[address] [facility] [facility] [id number] [facility] 2018-02-18 08:30:00 2018-02-18 08:30:[address] [facility] [id number] [facility]
--- NOTE | 2024-04-30 10:40 | EDPHYS ---
Physician Documentation [facility] Name: Polo Bae Age: 69 yrs Sex: Male : 1955 Arrival Date: 04/30/2024 Time: 09:49 Bed DX4 Private MD: ED Physician Lorie Paz HPI: 04/30 10:35 This 69 yrs old Male presents to ER via Ambulatory with complaints of Redness sd2 of Eye. 10:36 The patient is experiencing matting or discharge, redness, tearing. Onset: The sd2 symptoms/episode began/occurred 3 day(s) ago. Duration: the symptoms are continuous. Aggravated by nothing. Alleviated by nothing. Associated signs and symptoms: Pertinent positives: None. Pertinent negatives: None. Patient does not utilize any form of vision correction. Severity of symptoms: in the emergency department the symptoms are unchanged despite home interventions. The patient has not experienced similar symptoms in the past. The patient has not recently seen a physician. . Pt reports redness to eye with some itchiness but no blurred vision. . Historical: - Allergies: 10:19 No Known Allergies; aa5 - PMHx: 10:19 Hyperlipidemia; Hypertension; aa5 - Immunization history:: Adult Immunizations unknown. - Infectious Disease History:: Denies. - Social history:: Smoking status: Patient denies any tobacco usage or history of. ROS: 10:36 Constitutional: Negative for fever, chills, and weight loss, Eyes: Negative for injury, sd2 pain, Positive for redness, discomfort, itchiness and discharge, ENT: Negative for injury, pain, and discharge, Skin: Negative for injury, rash, and discoloration, Exam: 10:36 Constitutional: This is a well developed, well nourished patient who is awake, alert, sd2 and in no acute distress. Head/Face: Normocephalic, atraumatic. Eyes: EOMI, conjunctival injection noted to left eye with clear watery discharge, no pain with EOM, no eyelid edema or redness Skin: Warm, dry with normal turgor. Normal color with no rashes, no lesions, and no evidence of cellulitis. Vital Signs: 10:19 BP 138 / 73; Pulse 55; Resp 18 S; Temp 97.6(TE); Pulse Ox 98% on R/A; Weight 95.25 kg aa5 (R); Height 5 ft. 8 in. (R); 10:19 Body Mass Index 31.93 (95.25 kg, 172.72 cm) aa5 MDM: 10:28 Patient medically screened. sd2 10:36 Differential diagnosis: Corneal abrasion of Corneal ulcer of Foreign body in Acute sd2 iritis of Acute glaucoma in Ultraviolet keratitis in among others. Data reviewed: vital signs, nurses notes. I considered the following discharge prescriptions or medication management in the emergency department Medications were administered in the Emergency Department. See MAR. Historians other than the Patient: Spouse/Significant Other: at BS. Care significantly affected by the following chronic conditions: Hypertension. Counseling: I had a detailed discussion with the patient and/or guardian regarding the historical points, exam findings, and any diagnostic results supporting the discharge/admit diagnosis, the need for outpatient follow up, to return to the emergency department if symptoms worsen or persist or if there are any questions or concerns that arise at home. ED course: Pt denies any FB or FB sensation to eye. Clear vision that has been unchanged. Consistent with conjunctivitis according to presentation and exam at this time. Will discharge with abx eye drops. He is comfortable with plan for discharge and outpatient follow up and verbalizes understanding of strict return precautions. . Administered Medications: 10:58 Not Given (unavailable, Dr. Paz notified): erythromycinointment 1 application hb Ophthalmic once Disposition Summary: 04/30/24 10:40 Discharge Ordered Problem: new sd2 Symptoms: have improved sd2 Condition: Stable sd2 Diagnosis - Unspecified acute conjunctivitis, left eye sd2 Followup: sd2 - With: Private Physician - When: 2 - 3 days - Reason: Recheck today's complaints, Continuance of care, Re-evaluation by your physician Discharge Instructions: - Discharge Summary Sheet sd2 - Bacterial Conjunctivitis, Adult sd2 - How to Use Eye Drops and Eye Ointments sd2 Forms: - Medication Reconciliation Form sd2 - Antibiotic Education sd2 - Prescription Opioid Use sd2 - Patient Portal Instructions sd2 - Leadership Thank You Letter sd2 Prescriptions: - Erythromycin 5 mg/gram (0.5 %) Ophthalmic ointment - apply 1 centimeter OPHTHALMIC route every 6 hours for 7 days; 1 Single Use sd2 Tube; Refills: 0, Product Selection Permitted Signatures: Ninfa Bailey, ELVIS RN aa5 Lorie Paz MD MD sd2 Skylar Banuelos RN hb
--- NOTE | 2024-04-30 10:40 | ER ---
Nurse's Notes [facility] Name: Polo Bae Age: 69 yrs Sex: Male : 1955 Arrival Date: 04/30/2024 Time: 09:49 Bed DX4 Private MD: Diagnosis: Unspecified acute conjunctivitis, left eye Presentation: 04/30 10:19 Chief complaint: Patient states: left eye redness x 3 days ago. Coronavirus screen: At aa5 this time, the client does not indicate any symptoms associated with coronavirus-19. Ebola Screen: Patient denies travel to an Ebola-affected area in the 21 days before illness onset. Initial Sepsis Screen: Does the patient meet any 2 criteria? No. Patient's initial sepsis screen is negative. Does the patient have a suspected source of infection? No. Patient's initial sepsis screen is negative. Risk Assessment: Do you want to hurt yourself or someone else? Patient reports no desire to harm self or others. Onset of symptoms was April 2024. 10:19 Method Of Arrival: Ambulatory aa5 10:19 Acuity: SILVA 4 aa5 Historical: - Allergies: 10:19 No Known Allergies; aa5 - PMHx: 10:19 Hyperlipidemia; Hypertension; aa5 - Immunization history:: Adult Immunizations unknown. - Infectious Disease History:: Denies. - Social history:: Smoking status: Patient denies any tobacco usage or history of. Screenin:58 [facility] ED Fall Risk Assessment (Adult) History of falling in the last 3 months, hb including since admission No falls in past 3 months (0 pts) Confusion or Disorientation No (0 pts) Intoxicated or Sedated No (0 pts) Impaired Gait No (0 pts) Mobility Assist Device Used No (0 pt) Altered Elimination No (0 pt) Score/Fall Risk Level 0 - 2 = Low Risk Oriented to surroundings, Maintained a safe environment, Educated pt \T\ family on fall prevention, incl call for assistance when getting out of bed. Abuse screen: Denies threats or abuse. Denies injuries from another. Nutritional screening: No deficits noted. Tuberculosis screening: No symptoms or risk factors identified. Assessment: 10:58 General: Appears in no apparent distress. Behavior is calm, cooperative. Pain: Pain hb currently is 1 out of 10 on a pain scale. Neuro: Level of Consciousness is awake, alert, obeys commands, Oriented to person, place, time, situation. Cardiovascular: Patient's skin is warm and dry. Respiratory: Respiratory effort is even, unlabored, Respiratory pattern is regular, symmetrical. EENT: Sclera/Cornea are reddened in outer aspect of conjuctiva of right eye, inner aspect of conjuctiva of right eye, outer aspect of conjuctiva of left eye and inner aspect of conjunctiva of left eye. Vital Signs: 10:19 BP 138 / 73; Pulse 55; Resp 18 S; Temp 97.6(TE); Pulse Ox 98% on R/A; Weight 95.25 kg aa5 (R); Height 5 ft. 8 in. (R); 10:19 Body Mass Index 31.93 (95.25 kg, 172.72 cm) aa5 ED Course: 09:52 Patient arrived in ED. mr 10:16 Lorie Paz MD is Attending Physician. sd2 10:19 Triage completed. aa5 10:19 Arm band placed on. aa5 10:58 Patient has correct armband on for positive identification. Provided Education on: hb medications, follow up. 10:58 No provider procedures requiring assistance completed. Patient did not have IV access hb during this emergency room visit. Administered Medications: 10:58 Not Given (unavailable, Dr. Paz notified): erythromycinointment 1 application hb Ophthalmic once Medication: 10:58 VIS not applicable for this client. hb Outcome: 10:40 Discharge ordered by . sd2 10:58 Discharged to home ambulatory, with significant other, hb 10:58 Condition: stable 10:58 Discharge instructions given to patient, significant other, Instructed on discharge instructions, follow up and referral plans. medication usage, Demonstrated understanding of instructions, follow-up care, medications, Prescriptions given X 1, 11:01 Patient left the ED. hb Signatures: Swapna Montaño, Reg Reg mr Ninfa Bailey, RN RN aa5 Skylar Banuelos, ELVIS RN Lorie Lazaro MD MD sd2
[2024-04-30 11:16] VITALS: BP 138/73; TEMP 97.6; O2SAT 98
== END 2024-04-30 11:01 | disposition home or self-care (01) ==
LOC: ER 09:49
DX: H10.32 Unspecified acute conjunctivitis, left eye (principal)
CPT/HCPCS: 99283